=== PATIENT | female | born 1940 | race Caucasian/White ===

== ENCOUNTER 2017-03-20 11:38 | Emergency (ER) | payer OTHER ==
[~2017-03-20] VITALS: Ht 172.7 cm; Wt 79.8 kg
[~2017-03-20 11:38] MED LIST: AMLODIPINE BES2.5 MG PO; ASPIR 8181 M1 PO; BIOTIN 5000MCG PO; CLARITIN,ALAVAR10 MG PO; DIOVAN HCT 31 TABLE1 PO; ERGOCALCIF50000 UNIT PO; GLIPIZIDE ER2.5 MG PO; JANUVIA100 MG PO; LATANOPROST2.5 ML BOTH EYES; LIPITOR10 MG PO; MOBIC7.5 MG PO; NEXIUM40 MG PO; ULTRAM50 MG PO; VOLTAREN75 MG PO; ZOFRAN4 MG PO
[2017-03-20] MEDS ORDERED: PLAVIX75 MG PO (12:12)
[2017-03-20] MEDS ORDERED: LIPITOR40 MG PO (12:12)
[2017-03-20] MEDS ORDERED: ALLEGRA ALLERG180 MG PO (12:12)
[2017-03-20 13:37] LABS: HEMATOCRIT 44.9 % (36.0-46.0); MCH 26.7 PG (29.0-34.0); MCHC 32.7 G/DL (30.0-36.0); MCV 81.5 FL (83-99); MEAN PLAT.VOLUME 10.1 uM^3 (9.5-12.4); PLATELET COUNT 281 K/uL (156-360); RBC DIS.WIDTH-CV 12.5 % (11.8-14.6); RBC DIS.WIDTH-SD 37.3 % (39-53); RED BLOOD COUNT 5.51 M/uL (3.80-5.20); WHITE BLOOD COUNT 8.5 K/uL (4.1-10.2)
[2017-03-20 14:17] LABS: ADD MIUA? NO; BILIRUBIN NEGATIVE; BLOOD NEGATIVE; COLOR YELLOW ((YELLOW)); GLUCOSE (STRIP) NEGATIVE; KETONES NEGATIVE; LEUKOCYTES NEGATIVE; NITRITE NEGATIVE; PROTEIN (STRIP) NEGATIVE; UROBILINOGEN 0.2 MG/DL (0.2-1.0)
[2017-03-20 14:30] LABS: TOTAL BILIRUBIN 0.4 mg/dL (0.0-1.0)
[2017-03-20 14:31] LABS: ALKALINE PHOSPHATASE 80 IU/L (3-129)
[2017-03-20 14:33] LABS: DIRECT BILIRUBIN 0.2 mg/dL (0.0-0.3)
[2017-03-20 14:34] LABS: LIPASE 27 U/L (1.0-51.0)
[2017-03-20] MEDS ORDERED: TRAMADOL HCL50 MG PO (17:04)
[2017-03-20 17:20] VITALS: BP 144/98
== END 2017-03-20 17:21 | disposition home or self-care (01) ==
LOC: EME 11:38
PROVIDERS: Emergency Medicine
DX: K80.50 Calculus of bile duct without cholangitis or cholecystitis without obstruction (principal); K21.9 Gastro-esophageal reflux disease without esophagitis; I10 Essential (primary) hypertension; E11.9 Type 2 diabetes mellitus without complications; Z87.442 Personal history of urinary calculi; Z79.84 Long term (current) use of oral hypoglycemic drugs
CPT/HCPCS: 76705; 80076; 81003; 83690; 85027; 99281; 99285

== ENCOUNTER 2017-05-04 16:22 | Observation (INO) | payer OTHER ==
[~2017-05-04] VITALS: Ht 170.2 cm; Wt 85.7 kg
[~2017-05-04 16:22] MED LIST changes: +ALLEGRA ALLERG180 MG PO; +LIPITOR40 MG PO; +PLAVIX75 MG PO; +TRAMADOL HCL50 MG PO
[2017-05-04 17:19] LABS: EOSINOPHIL COUNT 0.3 K/uL (0-0.3); HEMATOCRIT 41.3 % (36.0-46.0); IMMATURE GRANULOCYTE (%) 0.4 % (0.0-0.7); INSTRUMENT ABS NEUTROPHIL CT 5.6 K/uL; LYMPHOCYTE COUNT 1.5 K/uL (1.0-2.8); MCH 27.4 PG (29.0-34.0); MCHC 33.7 G/DL (30.0-36.0); MCV 81.5 FL (83-99); MEAN PLAT.VOLUME 10.2 uM^3 (9.5-12.4); MONOCYTE (%) 10.7 % (3-12); MONOCYTE COUNT 0.9 K/uL (0-0.8); NEUTROPHIL (%) 67.3 % (45-76); NEUTROPHIL COUNT 5.6 K/uL (1.8-6.4); PLATELET COUNT 199 K/uL (156-360); RBC DIS.WIDTH-CV 13.1 % (11.8-14.6); RBC DIS.WIDTH-SD 38.5 % (39-53); RED BLOOD COUNT 5.07 M/uL (3.80-5.20); WHITE BLOOD COUNT 8.3 K/uL (4.1-10.2)
[2017-05-04 17:26] LABS: INTER. NORMALIZED RATIO 1.1; PROTHROMBIN TIME 12.4 SEC (10.2-12.9)
[2017-05-04 17:29] LABS: PTT 27.4 SEC (25-37)
[2017-05-04 17:33] LABS: CHLORIDE 105 mEq/L (99-109); POTASSIUM 3.6 mEq/L (3.7-5.4); SODIUM 140 mEq/L (136-147)
[2017-05-04 17:34] LABS: GLUCOSE 129 mg/dL (70-99)
[2017-05-04 17:36] LABS: ANION GAP 14 MEQ/L (2-14)
[2017-05-04 17:38] LABS: GFR ESTIMATE (CALCULATED) 46 mL/min/
[2017-05-04 17:39] LABS: UREA NITROGEN (BUN) 20 mg/dL (9-23)
[2017-05-04 17:42] LABS: TROP-I INTERPRETATION NEGATIVE; TROPONIN-I < 0.01 ng/mL (0.0-0.30)
[2017-05-04 18:11] LABS: HDL CHOLESTEROL 34 MG/DL (Desirable>=50); LDL CHOLESTEROL 54 mg/dL (Desirable<100); NON-HDL CHOLESTEROL 77 mg/dL (Desirable<160); TOTAL CHOLESTEROL 111 mg/dL (Desirable<200); TRIGLYCERIDES 114 MG/DL (Normal: <150)
[2017-05-04 19:35] LABS: Estimated Average Glucose 143 mg/dL (70-123); HEMOGLOBIN A1c (GLYCOHEMOGLOB) 6.6 % HGB (Below 5.7)
[2017-05-04] MEDS ORDERED: CENTRUM WOMEN1 EACH PO (20:37)
[2017-05-04] MEDS ORDERED: LITE COAT ASPI325 M1 PO (20:39)
[2017-05-04] MEDS ORDERED: CROMOLYN BOTH NARES (20:39)
[2017-05-04 23:13] LABS: ADD MIUA? NO; BILIRUBIN NEGATIVE; BLOOD NEGATIVE; COLOR STRAW ((YELLOW)); GLUCOSE (STRIP) NEGATIVE; KETONES NEGATIVE; LEUKOCYTES NEGATIVE; NITRITE NEGATIVE; PROTEIN (STRIP) NEGATIVE; UCUL ADDED? NO; UROBILINOGEN 0.2 MG/DL (0.2-1.0)
[2017-05-05 00:29] VITALS: BP 136/83
[2017-05-05 00:29] LABS: POINT-OF-CARE METER ID UU14162513
[2017-05-05 04:21] VITALS: BP 157/72
[2017-05-05 07:52] VITALS: BP 144/71
[2017-05-05 09:58] LABS: POINT-OF-CARE METER ID UU13113700
== END 2017-05-05 10:44 | disposition home or self-care (01) ==
LOC: EME 16:22 → 5WEST 20:16 → EDOF 20:16 → CANRESERV 20:26 → ENRESERV 20:26 → 5WEST 23:03
PROVIDERS: Emergency Medicine; Hospitalist; Physician Assistant Medical
DX: G45.9 Transient cerebral ischemic attack, unspecified (principal); I65.23 Occlusion and stenosis of bilateral carotid arteries; E11.65 Type 2 diabetes mellitus with hyperglycemia; E11.40 Type 2 diabetes mellitus with diabetic neuropathy, unspecified; I10 Essential (primary) hypertension; E78.5 Hyperlipidemia, unspecified; R42 Dizziness and giddiness; Z86.73 Personal history of transient ischemic attack (TIA), and cerebral infarction without residual deficits; Z86.19 Personal history of other infectious and parasitic diseases; M48.061 Spinal stenosis, lumbar region without neurogenic claudication; H40.9 Unspecified glaucoma; K21.9 Gastro-esophageal reflux disease without esophagitis; Z87.442 Personal history of urinary calculi; Z90.49 Acquired absence of other specified parts of digestive tract; Z79.82 Long term (current) use of aspirin; Z79.84 Long term (current) use of oral hypoglycemic drugs; Z82.3 Family history of stroke; Z83.3 Family history of diabetes mellitus; Z88.1 Allergy status to other antibiotic agents; Z88.8 Allergy status to other drugs, medicaments and biological substances
CPT/HCPCS: 70450; 70551; 80048; 80061; 81003; 82948; 83036; 84484; 85025; 85610; 85730; 87493; 93005; 93880; 99281; 99285; G0378; J1644